=== PATIENT | female | born 1935 | race Caucasian/White ===

== ENCOUNTER 2018-01-28 07:31 | Outpatient (CLI) | payer MEDICARE, BC ==
--- NOTE | 2018-01-28 10:52 | MRI ---
MRI LUMBAR SPINE: 01/28/2018 COMPARISON: 05/27/2016 TECHNIQUE: Multiplanar, multisequence noncontrast enhanced MR images of the lumbar spine obtained. FINDINGS: T12-L1: Unremarkable. L1-L2: Disk desiccation is seen. There is bilateral facet and ligamentum flavum hypertrophy. No si gnificant degree of central stenosis seen. L2-L3: Disk desiccation is seen. There is a broad-based central disk bulge with bilateral facet and ligamentum flavum hypertrophy. This results in a moderate degree of central and lateral recess sten osis. There is mild right-sided neural foraminal narrowing. Some endplate irregularity is seen in t he inferior endplate of L2 and in the superior endplate of L3. Marrow signal changes, compatible wit h type II modic changes. L3-L4: There is disk desiccation seen. There is a broad-based central disk bulge with bilateral fac et and ligamentum flavum hypertrophy. This results in a moderate degree of central and lateral reces s stenosis. No significant degree of neural foraminal narrowing is seen. There are modic type I pablo nges in the inferior endplate of L3 and in the superior endplate of L4. The endplate edema has incre ased, as have the modic changes, since the previous comparison exam. L4-L5: Disk desiccation is seen. There is grade 1 anterolisthesis of L4 on L5. Moderate central an d lateral recess stenosis is seen. There are severe bilateral facet hypertrophic changes seen, resul ting in anterolisthesis of L4 on L5. No definite evidence of spondylolysis seen. L5-S1: Disk desiccation is seen. There is severe facet hypertrophy with fluid in the L5-S1 facet juan josé ints. Mild central spinal stenosis is seen. Areas of increased signal are seen within the renal parenchyma, possibly representing hepatic parench ymal cysts. There also appears to be an area of heterogeneous signal intensity in the glynn hepatis. This may represent biliary pathology. Correlate with CT abdomen. In addition, again, a large, septated pelvic mass is seen just to the right of midline. Ovarian neop lasm cannot be excluded. This was seen on the patient's previous exam and was discussed. I do not k now, however, whether this lesion was addressed previously. If this was not previously addressed, I strongly recommend that this be performed, as cyst adenocarcinoma cannot be excluded. In a patient o f this age, this is not a normal finding. IMPRESSION: 1. Multilevel lumbar degenerative changes. 2. Complex right ovarian/pelvic cyst. Malignancy cannot be excluded. This was seen back to a previ ous CT of the pelvis on 01/24/2016 and previous lumbar MRI from 05/27/2016. CODE T
== END 2018-01-28 07:32 | disposition home or self-care (01) ==
LOC: SCSMRI 07:31
PROVIDERS: ATTEND Nurse Practitioner Family
DX: M48.062 Spinal stenosis, lumbar region with neurogenic claudication (principal); M47.896 Other spondylosis, lumbar region; N83.201 Unspecified ovarian cyst, right side
CPT/HCPCS: 72148

== ENCOUNTER 2018-02-23 08:25 | Outpatient (CLI) | payer MEDICARE, BC ==
[2018-02-23 09:02] LABS: Estimated GFR-MDRD - POC Greater than 90
--- NOTE | 2018-02-23 11:16 | MRI ---
MRI OF THE PELVIS WITHOUT AND WITH CONTRAST: HISTORY: Pelvic mass. COMPARISON: CT abdomen/pelvis 01/24/16. TECHNIQUE: Multiplanar, multisequence MR images were obtained of the pelvis without and with IV contrast. FINDINGS: There is a well-circumscribed lesion in the right adnexa measuring 6.4 x 4.4 x 5.6 cm in size. This has multiple septations. There is enhancement of the septations without enhancement of nodules along the wall of this lesion. When compared to the prior CT, this is stable in size. This is in the rig ht adnexal region. The right ovary cannot be definitely seen, but this is likely of ovarian origin. The left ovary cannot be visualized. There are multiple foci of low T2 signal in the uterus measuring up to 2.6 cm in size and likely repr esents small uterine fibroids. The uterus is retroflexed in appearance. The juncitonal zone of the uterus is normal in thickness. There are scattered diverticula in the colon. No pelvic adenopathy is seen. There are multiple foci of high T2 signal in the bilateral kidneys which represent cysts. No marrow signal abnormality is present. IMPRESSION: 1. Stable right adnexal multiseptated cystic lesion is likely of ovarian origin. Continued followup is recommended. 2. Diverticulosis. 3. Multiple small uterine fibroids. 4. Bilateral renal cysts. POS: OFF
[2018-02-23] MEDS ORDERED: Gadobenate Dimeglumine 529 MG/1 ML (20ML VIAL) ONE (11:30)
== END 2018-02-23 08:26 | disposition home or self-care (01) ==
LOC: SCSMRI 08:25
PROVIDERS: ATTEND Family Medicine
DX: R19.00 Intra-abdominal and pelvic swelling, mass and lump, unspecified site (principal); K57.30 Diverticulosis of large intestine without perforation or abscess without bleeding; D25.9 Leiomyoma of uterus, unspecified; N28.1 Cyst of kidney, acquired; N83.201 Unspecified ovarian cyst, right side
CPT/HCPCS: 72197; 82565; A9579

== ENCOUNTER 2018-03-09 07:21 | Day surgery (SDC) | payer MEDICARE, BC ==
[2018-03-07 09:55] VITALS: BMI 21.1
--- NOTE | 2018-03-08 22:50 | HP ---
HISTORY OF PRESENT ILLNESS: Ms. Rosa is a very pleasant 83-year-old woman, presenting for eval uation of left-sided buttock pain, radiating in L5 fashion on the left lower extremity. She has an M RI from [place] that reveals moderate to severe lateral recess stenosis bilaterally at L4-L5 with associated grade I slip at the same level, which was associated with severe left-sided foraminal sten osis at L5. She has been treating this conservatively with epidural steroid injections and medicatio ns that was set her early, this has been waning and she looks to this more definitively. PAST MEDICAL HISTORY: Significant for hypercholesterolemia, hypertension. PAST SURGICAL HISTORY: Ovarian cystectomy. CURRENT MEDICATIONS: Bystolic, amlodipine, and atorvastatin. ALLERGIES: To SULFA DRUGS, GABAPENTIN, and ROCEPHIN. PHYSICAL EXAMINATION: GENERAL: Patient is alert and oriented x3. Gait is normal. EXTREMITIES: Lower extremity exam reveals 5/5 strength in bilateral lower extremities. Reflexes are equal and present bilaterally at the patella. ASSESSMENT: Lumbar radiculopathy. PLAN: Dr. Edward met with the patient, reviewed imaging and ultimately advocated for a left L4-L5 dec ompression and left L5 facetectomy. He explained to the patient the risks, benefits, alternatives of the procedure. The patient expressed understanding and would like to move forward with surgery as tierney maradiaga. I do believe the patient is mentally competent and capable of making medical decisions for herself. We will move forward with surgery as planned.
[2018-03-09] MEDS ORDERED: Levofloxacin 500 mg/D5W 100 ml Premix Bag ONE (07:51)
[2018-03-09] MEDS ORDERED: Clindamycin/D5W 900 mg/50 ml Premix Bag ONE (07:51)
[2018-03-09] MEDS ORDERED: Thrombin 5000 UNITS/5 ML VIAL ONE (07:52)
[2018-03-09] MEDS ORDERED: Bupivacaine HCl 0.5%/Epinephrine 1:200,000/PF 30 ml Vial ONE (07:52)
[2018-03-09] MEDS ORDERED: Fentanyl 100 MCG/2 ML VIAL ONE (08:26)
--- NOTE | 2018-03-09 10:37 | OP ---
DATE OF PROCEDURE: 03/09/2018 SURGEON: Crhis Edward M.D. LENS GENERATING MACHINE TENDER: Jony Eden PA-C. INDICATION: Pain. DIAGNOSIS: Lumbar radiculopathy. PROCEDURE: Left L5 facetectomy, left L4-L5 hemilaminectomy, medial facetectomy, decompression. ANESTHESIA: General. TECHNIQUE: The patient was brought into the operating room and placed under general anesthesia. She was flipped from a supine or prone position on the operating table. A linear incision was planned o timoteo the L5 segment. After prepping and draping and after an appropriate operative pause, the incisio n was created. Soft tissues were swept left of midline. A self-retaining retractor was placed in th e wound for optimal exposure. After confirming the appropriate levels with a C-arm fluoroscopy, a hi gh-speed cutting drill bit as well as 2, 3 and 4 mm Kerrisons were used to perform a facetectomy over the L5 exiting nerve root. We extended our laminectomy defect superiorly to encompass the L4-5 late ral recess in order to decompress the L5 nerve root as it descended. The wound was then irrigated. Hemostasis was maintained throughout. The wound was then closed in anatomic layers and a pressure dr essing was applied. There were no known procedural complications.
[2018-03-09] MEDS ORDERED: HYDROcodone/Acetaminophen 5/325 mg Tablet ONE (11:16)
[2018-03-09] MEDS ORDERED: ePHEDrine/0.9% NaCl/PF SYRINGE 50 mg/10 ml ONE (14:44)
[2018-03-09] MEDS ORDERED: Ondansetron HCl/PF 4 MG/2 ML Vial ONE (14:44)
[2018-03-09] MEDS ORDERED: Glycopyrrolate 0.2 MG/ML 5 ML SYRINGE ONE (14:44)
[2018-03-09] MEDS ORDERED: PROPOFOL 200 MG/20 ML VIAL ONE (14:44)
[2018-03-09] MEDS ORDERED: Dexamethasone 20 MG/5 ML VIAL ONE (14:44)
[2018-03-09] MEDS ORDERED: Lidocaine 1% PF 5 ML VIAL ONE (14:44)
--- NOTE | 2018-03-10 12:32 | EKG ---
Test Reason : PREOP Blood Pressure : / mmHG Vent. Rate : 056 BPM Atrial Rate : 056 BPM P-R Int : 200 ms QRS Dur : 090 ms QT Int : 436 ms P-R-T Axes : 016 -17 013 degrees QTc Int : 420 ms Sinus bradycardia with sinus arrhythmia Moderate voltage criteria for LVH, may be normal variant Nonspecific ST abnormality Abnormal ECG Confirmed by YOSVANY BYRD ([id number]) on 03/10/2018 12:31:47 PM Referred By: ARASH Confirmed By:YOSVANY BYRD
== END 2018-03-09 12:56 | disposition home or self-care (01) ==
LOC: SDC 07:21
PROVIDERS: ATTEND Neurological Surgery
PROC: 01NB0ZZ Release Lumbar Nerve, Open Approach (ICD-10-PCS; principal; 2018-03-09)
PROC: 01NB0ZZ Release Lumbar Nerve, Open Approach (ICD-10-PCS; 2018-03-09)
DX: M54.16 Radiculopathy, lumbar region (principal); E78.00 Pure hypercholesterolemia, unspecified; I10 Essential (primary) hypertension; Z88.2 Allergy status to sulfonamides; Z88.8 Allergy status to other drugs, medicaments and biological substances; Z88.1 Allergy status to other antibiotic agents; Z79.899 Other long term (current) drug therapy
CPT/HCPCS: 76000; 93005; 93010; J0670; J1100; J1956; J2001; J2405; J2704; J3010; J3490

== ENCOUNTER 2019-06-11 08:11 | Observation (INO) | payer MEDICARE, BC ==
[2019-06-11] MEDS ORDERED: Diltiazem 125 MG/25 ML ONE (08:23)
[2019-06-11] MEDS ORDERED: Aspirin Chewable 81 MG TAB ONE (08:25)
[2019-06-11 08:28] LABS: #Basophils 0.1 thou/uL (0.0-0.2); #Eosinphils 0.3 thou/uL (0.0-0.7); #Lymphocytes 1.6 thou/uL (1.20-3.40); #Monocytes 0.7 thou/uL (0.11-0.59); #Neutrophils 7.1 thou/uL (1.40-6.50); %Basophils 0.7 % (0.0-1.0); %Eosinophils 3.2 % (0.0-10.0); %Lymphocytes 16.2 % (21.0-51.0); %Monocytes 7.2 % (0.0-10.0); %Neutrophils 72.7 % (42.0-75.0); Hemoglobin 15.5 g/dL (12.0-16.0); Mean Corpuscular HGB CONC 32.2 g/dL (32.0-36.0); Mean Corpuscular Hemoglobin 29.1 pg (27.0-31.0); Mean Corpuscular Volume 90.2 fL (78.0-98.0); Mean Platelet Volume 7.6 fL (7.4-10.4); Platelet Count 284 thou/uL (130-400); RBC Distribution Width 12.7 % (11.5-14.5); Red Blood Cell (RBC) Count 5.32 mill/uL (4.20-5.40); White Blood Cell (WBC) Count 9.8 thou/uL (4.8-10.8)
[2019-06-11 08:42] LABS: ALT (SGPT) 14 U/L (8-55); AST (SGOT) 19 U/L (5-34); Albumin 4.6 g/dL (3.4-4.8); Alkaline Phosphatase 123 U/L (40-110); Anion Gap 18 mmol/L (10-20); BUN (Urea Nitrogen) 13 mg/dL (9.8-20.1); Bilirubin, Total 1.2 mg/dL (0.2-1.2); Calc. Creatinine Clearance 0 mL/min (70-130); Calcium 10.8 mg/dL (7.8-10.44); Carbon Dioxide 24 mmol/L (23-31); Chloride 106 mmol/L (98-107); Estimated GFR-MDRD 66; Globulin 3.3 g/dL (2.4-3.5); Glucose 126 mg/dL (83-110); Lipase 51 U/L (8-78); Potassium 3.7 mmol/L (3.5-5.1); Protein, Total 7.9 g/dL (6.0-8.3); Sodium 144 mmol/L (136-145)
--- NOTE | 2019-06-11 09:19 | RAD ---
TWO VIEW CHEST: INDICATION: Emergency exam, chest pain. FINDINGS: Lungs are hyperinflated without consolidation or effusion. Cardiac silhouette is mildly enlarged. T here is vascular calcification. Chronic-appearing osseous changes are seen. IMPRESSION: 1. Chronic obstructive pulmonary disease. 2. Enlargement of the cardiac silhouette. POS: C
[2019-06-11 11:40] LABS: Troponin I 0.027 ng/mL (< 0.028)
[2019-06-11 12:30] VITALS: BMI 21.7
[2019-06-11] MEDS ORDERED: Ondansetron ODT 4 MG TAB SL PRN (13:21)
[2019-06-11] MEDS ORDERED: Acetaminophen 325 MG TAB PO PRN ×2 (13:21→14:02)
[2019-06-11] MEDS ORDERED: Ondansetron PF 4 MG/2 ML Vial IVP PRN ×2 (13:21→14:02)
[2019-06-11] MEDS ORDERED: Nitroglycerin 0.4 MG TAB (25 Tab Bottle) PO PRN (14:01)
[2019-06-11] MEDS ORDERED: Calcium Carbonate 500 MG ChewTAB PO PRN (14:02)
[2019-06-11] MEDS ORDERED: Ondansetron ODT 4 MG TAB PO PRN (14:02)
[2019-06-11] MEDS ORDERED: Polyethylene Glycol 3350 17 GM Packet PO PRN (14:03)
[2019-06-11] MEDS ORDERED: cloNIDine 0.1 MG TAB PO PRN (14:03)
[2019-06-11] MEDS ORDERED: Milk Of Magnesia 30 ML UDCUP PO PRN (14:03)
--- NOTE | 2019-06-11 14:40 | HP ---
PRIMARY CARE DOCTOR: Shivam Witt MD. CHIEF COMPLAINT: Chest discomfort. HISTORY OF PRESENT ILLNESS: The patient is an 84-year-old female with hypertension and hyperlipidemia, presented to the [facility] with sudden onset of chest discomfort along with lightheadedness and palpitations that started at 5:30 a.m. She was doing her routine activities at this time. It was short lasting without any aggravating or relieving factor. She denies any diaphoresis, nausea, vomiting, cough, shortness of breath, or syncope. No recent immobilization or travel reported. In the emergency room, her workup was consistent with atrial fibrillation with rapid ventricular response with a heart rate 138. She received a Cardizem bolus after which she converted to sinus rhythm. She denies any chest discomfort at this time. PAST MEDICAL HISTORY: 1. Hypertension. 2. Hyperlipidemia. 3. Primary hyperparathyroidism, followed by Dr. Mendes. 4. Degenerative joint disease. 5. History of skin cancer. 6. Chronic pain syndrome, followed by Dr. Macias. PAST SURGICAL HISTORY: 1. Ovarian abscess in 1972. 2. Renal stone removal in 2015. ALLERGIES: THE PATIENT IS ALLERGIC TO GABAPENTIN THAT CAUSES FACIAL FLUSHING AND ROCEPHIN THAT CAUSES TINGLING AND FACIAL FLUSHING. THE PATIENT IS ALSO ALLERGIC TO SULFA. CURRENT HOME MEDICATIONS: 1. Amlodipine 2.5 mg daily. 2. Lipitor 10 mg at bedtime. 3. Bystolic 2.5 mg daily. 4. Triamcinolone ointment twice a day. SOCIAL HISTORY: The patient currently lives at home with her . No current use of tobacco, alcohol, or drug use. She is full code. Makes her own decision with the help of her . FAMILY HISTORY: Negative for premature coronary artery disease. REVIEW OF SYSTEMS: All other review of systems was reviewed and were found negative. PHYSICAL EXAMINATION: VITAL SIGNS: Temperature 97.9, respiration 18, pulse of 136, blood pressure of 166/106, O2 saturation 99% on room air. GENERAL: An 84-year-old female in no apparent distress. Denies any chest discomfort. HEENT: Head atraumatic and normocephalic. Sclerae anicteric. Moist mucous membrane. No oral lesion. NECK: Supple. No JVD. No carotid bruit. LUNGS: Clear to auscultation bilaterally. No wheezing, rales, or rhonchi. HEART: S1 and S2 present. Regular rate and rhythm. No rubs or gallops. 2/6 systolic murmur over the mitral area. ABDOMEN: Soft, nontender. Bowel sounds present. No rebound or guarding. EXTREMITIES: No edema or calf tenderness. NEUROLOGIC: Grossly nonfocal, moves all 4 extremities. PSYCHIATRY: Alert, awake, oriented x3. SKIN: Warm and dry. LYMPH NODES: No palpable lymph nodes in the neck. PERIPHERAL VASCULAR: Radial pulses palpable bilaterally. MUSCULOSKELETAL: No joint swelling or tenderness. LABORATORY FINDINGS: CBC showed WBC 9.8 with hemoglobin 15.5, hematocrit 48, platelet 284. Chemistry showed sodium 144, potassium 3.7, chloride 106, bicarb 24, BUN 13, creatinine 0.82, calcium of 10.8. Troponin was negative. Chest x-ray by my review was negative for infiltrate or edema. EKG by my review showed atrial fibrillation with rapid ventricular response. IMPRESSION: 1. New onset atrial fibrillation with rapid ventricular response. The patient converted to sinus rhythm after IV Cardizem. 2. Chest discomfort, rule out acute coronary syndrome. 3. Hypertension. 4. Hyperlipidemia. 5. Primary hyperparathyroidism. 6. Chronic kidney disease stage 2. 7. History of skin cancer. 8. Degenerative joint disease. 9. Chronic low back pain, followed by Dr. Macias. PLAN: The patient will be monitored on the telemetry unit. We will resume Bystolic. Echocardiogram will be obtained. We will hold anticoagulation for now. We will await Cardiology input. DVT prophylaxis. The patient never had any previous cardiac workup in the past. CHADS2-VASc score is 4. She denies any history of bleeding in the past. She had a mechanical fall recently without significant injuries. She however denies any other fall or bleeding issues in the past. Fall precaution. Walking program. Plan of care was discussed with the patient in detail. She stated understanding. Job ID: [id number]
[2019-06-11] MEDS ORDERED: Nebivolol HCl 2.5 MG TAB PO SCH (14:45)
[2019-06-11 15:12] LABS: Troponin I 0.034 ng/mL (< 0.028)
--- NOTE | 2019-06-11 18:55 | CON ---
DATE OF CONSULTATION: 06/11/2019 REASON FOR CONSULTATION: Atrial fibrillation with a rapid rate. HISTORY OF PRESENT ILLNESS: Ms. Rosa is a delightful 84-year-old woman. She was doing well this morning. She woke up feeling fine, but she developed atrial fibrillation with a rapid rate. She felt her heart racing and some tightness in her chest. She came here to the hospital. She had atrial fibrillation with a rapid rate. She converted to sinus rhythm here and felt better promptly. She has never had an episode like that before. OTHER PAST HISTORY: She has a history of hyperparathyroidism. She may need surgery for that. Otherwise, she has been active and healthy. No cardiac problems. MEDICATIONS: Prior to admission, 1. Atorvastatin. 2. Bystolic 5 mg tablet, 2.5 mg a day. 3. Amlodipine 2.5 mg a day. REVIEW OF SYSTEMS: CONSTITUTIONAL: No significant weight gain or loss. VISION: No changes. HEARING: No changes. PULMONARY: No cough or wheezing. GASTROINTESTINAL: No nausea, vomiting, or diarrhea. SKIN: No rashes. PHYSICAL EXAMINATION: GENERAL: This is a delightful elderly woman. VITAL SIGNS: She is 5 feet tall, 111 pounds. HEENT: Eyes, sclerae nonicteric. Mouth, mucous membranes moist. NECK: Supple. No lymphadenopathy. LUNGS: Clear. CARDIAC: Normal S1, normal S2. There is no murmur, rub, or gallop. ABDOMEN: Soft and nontender. EXTREMITIES: Warm and dry. No clubbing. No cyanosis. No edema. LABORATORY DATA: Potassium is 3.7. Troponin 0.034. EKG; initial atrial fibrillation with a rapid ventricular response; later, sinus bradycardia. The heart rate was 140 when she was in atrial fibrillation. She had some ST depression in the lateral leads when she was tachycardic. ASSESSMENT: 1. Paroxysmal atrial fibrillation with a rapid ventricular response associated with some angina. 2. Mild sinus bradycardia. 3. History of hypertension. PLAN: 1. Start low-dose Multaq. 2. Reduce dose of Eliquis. 3. Echo tomorrow, then probably home. Job ID: [id number]
[2019-06-11] MEDS ORDERED: Dronedarone HCl 400 MG TAB PO SCH (19:00)
[2019-06-11] MEDS ORDERED: Enoxaparin Sodium 40 MG/0.4 ML SYRINGE SC SCH (21:00)
[2019-06-11] MEDS ORDERED: Atorvastatin Calcium 10 MG TAB PO SCH (21:00)
[2019-06-11] MEDS: Apixaban 2.5 MG TAB PO SCH (21:14)
[2019-06-12 04:39] LABS: Anion Gap 11 mmol/L (10-20); BUN (Urea Nitrogen) 17 mg/dL (9.8-20.1); Calc. Creatinine Clearance 41 mL/min (70-130); Calcium 9.8 mg/dL (7.8-10.44); Carbon Dioxide 25 mmol/L (23-31); Chloride 106 mmol/L (98-107); Estimated GFR-MDRD 70; Glucose 95 mg/dL (83-110); Potassium 3.8 mmol/L (3.5-5.1); Sodium 138 mmol/L (136-145)
[2019-06-12 04:53] LABS: #Eosinphils 0.2 thou/uL (0.0-0.7); #Lymphocytes 1.4 thou/uL (1.20-3.40); #Monocytes 0.7 thou/uL (0.11-0.59); %Basophils 0.5 % (0.0-1.0); %Eosinophils 2.6 % (0.0-10.0); %Lymphocytes 16.3 % (21.0-51.0); %Monocytes 8.3 % (0.0-10.0); %Neutrophils 72.3 % (42.0-75.0); Hemoglobin 12.6 g/dL (12.0-16.0); Mean Corpuscular HGB CONC 33.7 g/dL (32.0-36.0); Mean Platelet Volume 7.8 fL (7.4-10.4); Platelet Count 224 thou/uL (130-400); RBC Distribution Width 12.6 % (11.5-14.5); Red Blood Cell (RBC) Count 4.22 mill/uL (4.20-5.40); White Blood Cell (WBC) Count 8.3 thou/uL (4.8-10.8)
[2019-06-12 05:03] LABS: CKMB 1.8 ng/mL (0-6.6)
[2019-06-12] MEDS ORDERED: Dronedarone HCl 400 MG TAB PO SCH ×2 (08:00)
[2019-06-12] MEDS: Apixaban 2.5 MG TAB PO SCH (08:54)
[2019-06-12] MEDS ORDERED: Nebivolol HCl 2.5 MG TAB PO SCH (09:00)
[2019-06-12] MEDS ORDERED: Aspirin 325 mg Enteric Coated Tablet PO SCH (09:00)
[2019-06-12] MEDS ORDERED: Amlodipine 5 MG TAB PO SCH (09:00)
[2019-06-12 12:12] VITALS: BP 170/74; TEMP 97.4
--- NOTE | 2019-06-12 13:28 | PRG ---
DATE OF SERVICE: 06/12/2019 SUBJECTIVE: Ms. Rosa is doing well. She feels well. No complaints. No chest pain or pressure. OBJECTIVE: VITAL SIGNS: Blood pressure is 170/70, pulse is 48 to 50 and sinus. LUNGS: Clear. CARDIAC: Normal S1, normal S2. DIAGNOSTIC DATA: Echocardiogram showed normal left ventricular function, moderately enlarged left atrium. ASSESSMENT: 1. Sinus bradycardia. 2. Hypertension. 3. Paroxysmal atrial fibrillation. PLAN: 1. Stop Bystolic. 2. She will stay on Multaq 200 mg twice a day starting tomorrow night. 3. Follow up next week. If she is bradycardic, we may have to consider pacemaker insertion. Hopefully, she will be able to tolerate low-dose Multaq without causing bradycardia. Job ID: [id number]
--- NOTE | 2019-06-13 00:47 | DIS ---
DATE OF ADMISSION: 06/11/2019 DATE OF DISCHARGE: 06/12/2019 DISCHARGE DISPOSITION: Home. FOLLOWUP: 1. Follow up with primary care physician, Dr. Shivam Witt in 1 week. 2. Followup Cardiology in 1 to 2 weeks as scheduled. MEDICATION DISCONTINUED: This admission is Bystolic. DISCHARGE MEDICATION: 1. Multaq 200 mg b.i.d. 2. Eliquis 2.5 mg b.i.d. 3. Amlodipine 2.5 mg daily. 4. Lipitor 10 mg at bedtime. 5. Tylenol as needed. DIAGNOSTIC TESTS: Troponin 0.051 with CK-MB 1.8. Calcium on admission was 10.8, next day was 9.8. BRIEF HOSPITAL COURSE: The patient is an 84-year-old female, with hypertension and hyperlipidemia, presented to the hospital with chest discomfort. Workup was consistent with new-onset atrial fibrillation with rapid ventricular response. She received IV Cardizem in the emergency room after which she converted to sinus rhythm. Due to elevated CHADS2-VASc score of 4, she has been started on anticoagulation per Cardiology recommendation. Multaq was also started. Due to bradycardia, Dr. Theodore recommended to discontinue Bystolic. She has been cleared by Dr. Theodore for discharge. FINAL DIAGNOSES: 1. New-onset atrial fibrillation with rapid ventricular response, converted to sinus rhythm after IV Cardizem. 2. Chest discomfort secondary to #1. 3. Hypertension. 4. Hyperlipidemia. 5. Primary hyperparathyroidism. 6. Chronic kidney disease, stage 2. 7. History of skin cancer. 8. Degenerative joint disease. 9. Hypomagnesemia. 10. Chronic low back pain. 11. Elevated troponin secondary to demand ischemia/type 2 myocardial infarction. 12. Risks, not limited to life threatening bleeding from anticoagulation was discussed. The patient stated understanding. Job ID: [id number]
== END 2019-06-12 13:30 | disposition home or self-care (01) ==
LOC: SCSER 08:11 → 2SW 09:25
PROVIDERS: ADMIT Internal Medicine; ATTEND Internal Medicine
DX: I48.91 Unspecified atrial fibrillation (principal); I12.9 Hypertensive chronic kidney disease with stage 1 through stage 4 chronic kidney disease, or unspecified chronic kidney disease; N18.2 Chronic kidney disease, stage 2 (mild); E78.5 Hyperlipidemia, unspecified; E21.0 Primary hyperparathyroidism; I21.A1 Myocardial infarction type 2; G89.4 Chronic pain syndrome; M19.90 Unspecified osteoarthritis, unspecified site; Z79.899 Other long term (current) drug therapy; Z88.1 Allergy status to other antibiotic agents; Z88.2 Allergy status to sulfonamides; Z88.8 Allergy status to other drugs, medicaments and biological substances
CPT/HCPCS: 71046; 80048; 80053; 82553; 83690; 83735; 84484 ×3; 85025 ×2; 93005; 93306; 94760; 96365; 96376; 97139; 99285; G0378 ×2; 36415

== ENCOUNTER 2019-08-03 07:32 | Outpatient (CLI) | payer MEDICARE, BC ==
--- NOTE | 2019-08-03 11:40 | NM ---
RADIONUCLIDE PARATHYROID SCAN WITH PLANAR AND SPECT-CT IMAGES: HISTORY: Hyperparathyroidism, unspecified RADIOPHARMACEUTICAL:26.4mCi technetium 99m-sestamibi injected intravenously FINDINGS: There is physiologic uptake in the salivary glands and thyroid gland. There is a focal area of increased tracer localization inferior to the right lobe of the thyroid felipe díaz IMPRESSION: Findings are suspicious for a right inferior parathyroid adenoma
== END 2019-08-03 07:33 | disposition home or self-care (01) ==
LOC: NM 07:32
PROVIDERS: ATTEND Specialist
DX: E21.3 Hyperparathyroidism, unspecified (principal)
CPT/HCPCS: 78072; A9500

== ENCOUNTER → 2019-09-02 | Day surgery (SDC) | payer MEDICARE, BC ==
[2019-08-30 13:52] VITALS: BMI 21.4
[~2019-09-02] MED LIST: Dexamethasone 20 MG/5 ML VIAL ONE; Fentanyl 100 MCG/2 ML VIAL ONE; Lidocaine 1% PF 5 ML VIAL ONE; Lidocaine 1% w/Epinephrine 1:100K 20 ML VIAL ONE; Ondansetron PF 4 MG/2 ML Vial ONE; PROPOFOL 200 MG/20 ML VIAL ONE; Succinylcholine Chloride 20 MG/ML 10 ml SYRINGE FS ONE; ePHEDrine/0.9% NaCl/PF SYRINGE 50 mg/10 ml ONE
[2019-09-02 09:33] LABS: Hemoglobin 13.1 g/dL (12.0-16.0)
[2019-09-02 09:44] LABS: Anion Gap 13 mmol/L (10-20); BUN (Urea Nitrogen) 18 mg/dL (9.8-20.1); Calc. Creatinine Clearance 38 mL/min (70-130); Calcium 9.9 mg/dL (7.8-10.44); Carbon Dioxide 22 mmol/L (23-31); Chloride 108 mmol/L (98-107); Estimated GFR-MDRD 65; Glucose 87 mg/dL (83-110); Potassium 3.8 mmol/L (3.5-5.1); Sodium 139 mmol/L (136-145)
--- NOTE | 2019-09-03 15:07 | OP ---
DATE OF PROCEDURE: 09/02/2019 PREOPERATIVE DIAGNOSES: 1. Hypercalcemia. 2. Right inferior parathyroid adenoma. POSTOPERATIVE DIAGNOSES: 1. Hypercalcemia. 2. Right inferior parathyroid adenoma. PROCEDURES PERFORMED: 1. Right neck exploration. 2. Right parathyroidectomy using laryngeal nerve monitoring for 1 hour. PROCEDURE IN DETAIL: After consent was obtained, the patient was identified and brought to the operating room, placed on the operating room table in supine position. General endotracheal anesthesia was obtained with laryngeal nerve monitor and the larynx was visualized with a GlideScope to make sure the endotracheal tube was in place and functioning. We then positioned the patient, prepped and draped in a sterile fashion. A natural skin crease was identified and delineated with a marking pen and then infiltrated with 1% lidocaine and 1:200,000 epinephrine. The neck was then prepped and draped in sterile fashion. We made an incision through the skin and subcutaneous tissues, and with electrocautery, extended through the platysma, and elevated inferior and superior based subplatysmal flaps. A self-retaining retractor was placed and the strap muscles were divided in midline. We then were able to dissect the strap muscles from the thyroid cartilage and retract the strap muscles laterally. At this point, we dissected into the inferior aspect as documented by the parathyroid scan and SPECT/CT, and where the parathyroid was supposed to be, a small parathyroid gland was found and sent for histologic evaluation. The thought was that it was not large enough to represent the entire adenoma, so we continued to search, and in the tracheoesophageal groove quite anterior near the innominate artery, we were able to find the larger parathyroid gland that was sent and documented to be the parathyroid adenoma. At this point, we placed procoagulant Avitene in the operative bed after hemostasis was obtained and the wound was closed with the strap muscles being approximated as well as the platysma with absorbable Monocryl. The skin was closed with 6-0 Prolene and the patient was awakened and taken to recovery room in stable condition identified. Job ID: [id number]
== END ==
LOC: SDC 08:32
PROVIDERS: ATTEND Specialist
PROC: 0GBN0ZZ Excision of Right Inferior Parathyroid Gland, Open Approach (ICD-10-PCS; principal; 2019-09-02)
DX: D35.1 Benign neoplasm of parathyroid gland (principal); E21.3 Hyperparathyroidism, unspecified; M19.90 Unspecified osteoarthritis, unspecified site; I48.91 Unspecified atrial fibrillation; Z79.01 Long term (current) use of anticoagulants; Z79.899 Other long term (current) drug therapy; Z88.1 Allergy status to other antibiotic agents; Z88.2 Allergy status to sulfonamides; Z88.8 Allergy status to other drugs, medicaments and biological substances
CPT/HCPCS: 80048; 85014; 85018; 88305; 88331; 88334; 93005; 93010; J0690; J1100; J2001; J2405; J2704; J3010

== ENCOUNTER 2020-02-01 09:34 | Outpatient (CLI) | payer MEDICARE, BC ==
--- NOTE | 2020-02-01 13:12 | RAD ---
LUMBAR SPINE SERIES 2 VIEWS: Date: 02/01/2020 HISTORY: Back pain. FINDINGS: There are severe arthritic changes of the spine. There is marked degenerative disc narrowing from the L2-3 to the L5-S1 level. There is scoliotic change convex to the left. Prominent degenerative facet changes are present. Pedicles are intact. Extensive atherosclerotic change noted. IMPRESSION: Scoliosis and severe arthritic changes of the spine. POS: BHAKTI
== END 2020-02-01 09:35 | disposition home or self-care (01) ==
LOC: SCSRAD 09:34
PROVIDERS: ATTEND Family Medicine
DX: M54.5 Low back pain (principal); M41.9 Scoliosis, unspecified; M47.816 Spondylosis without myelopathy or radiculopathy, lumbar region
CPT/HCPCS: 72100

== ENCOUNTER 2020-05-22 12:39 | Outpatient (CLI) | payer MEDICARE, BC ==
--- NOTE | 2020-05-22 13:11 | RAD ---
4 views of the lumbar spine: 05/22/2020 COMPARISON: 02/01/2020 HISTORY: Back surgery, fall, low back pain FINDINGS: There is a stable degree of levoscoliosis at the upper lumbar spine. Lumbar pedicles appear intact on the frontal imaging. There is extensive atherosclerotic calcification of the abdominal aorta and its branches. At the L2-3, L3-4, L4-5, and L5-S1 levels there is disc space narrowing with degenerative endplate ch rodrigo and anterior osteophyte formation. On the neutral lateral imaging there is anterolisthesis measuring 6-7 mm at L4-5 and L5-S1. This ante rolisthesis does not appear significantly changed on the flexion or extension views. No evidence for an acute fracture is seen. IMPRESSION: Multilevel degenerative change within the lumbar spine as detailed above.
== END 2020-05-22 12:40 | disposition home or self-care (01) ==
LOC: SCSRAD 12:39
PROVIDERS: ATTEND Family Medicine
DX: M54.5 Low back pain (principal); M47.816 Spondylosis without myelopathy or radiculopathy, lumbar region; M47.817 Spondylosis without myelopathy or radiculopathy, lumbosacral region
CPT/HCPCS: 72110